=== PATIENT | female | born 1985 | race Caucasian/White ===

== ENCOUNTER 2016-11-11 11:55 | Emergency (ER) | payer OTHER, SELFPAY ==
[~2016-11-11] VITALS: Ht 165.1 cm; Wt 68.9 kg
[2016-11-11 12:10] VITALS: BP 129/81
[2016-11-11] MEDS ORDERED: PENICILLIN V POTASSIUM 500 MG TAB PO ONE (12:45)
[2016-11-11] MEDS ORDERED: PENI500T PO (12:47)
== END 2016-11-11 12:56 | disposition home or self-care (01) ==
LOC: M ED 12:40
DX: K08.9 Disorder of teeth and supporting structures, unspecified (principal)

== ENCOUNTER 2020-02-07 14:59 | Emergency (ER) | payer MEDICAID, SELFPAY ==
[~2020-02-07] VITALS: Ht 165.1 cm; Wt 73.8 kg
[~2020-02-07 14:59] MED LIST: PENI500T PO
[2020-02-07] MEDS ORDERED: ONDANSETRON 4MG/2ML VIAL IV ONE (15:15)
[2020-02-07] MEDS ORDERED: NS 1,000 ML IV ONE (15:15)
[2020-02-07] MEDS: KETOROLAC 30 MG/ML 1ML VIAL IV ONE ×2 (15:38→16:09)
[2020-02-07 15:41] LABS: BASO # 0.1 10^3/uL (0.0-0.2); BASO % 0.5 % (0.0-1.0); EOS # 0.3 10^3/uL (0.0-0.5); EOS % 3.5 % (0.0-3.0); HEMOGLOBIN 12.8 g/dl (12.0-15.5); LYMPH # 1.7 10^3/uL (1.5-5.0); LYMPH % 18.7 % (24.0-44.0); MEAN CORPUSCULAR HEMOGLOBIN 27.8 pg (27.0-33.0); MEAN CORPUSCULAR HGB CONC 33.7 g/dl (32.0-36.5); MEAN CORPUSCULAR VOLUME 82.6 fl (80.0-96.0); MONO # 0.7 10^3/uL (0.0-0.8); MONO % 7.1 % (0.0-5.0); NEUTROPHILS # 6.5 10^3/uL (1.5-8.5); PLATELET COUNT, AUTOMATED 460 10^3/uL (150-450); WHITE BLOOD COUNT 9.3 10^3/uL (4.0-10.0)
[2020-02-07 16:01] LABS: HCG, SERUM QUALITATIVE POSITIVE (NEGATIVE)
[2020-02-07 16:25] LABS: ALBUMIN 4.1 GM/DL (3.2-5.2); ALT/SGPT 27 U/L (12-78); BILIRUBIN,DIRECT < 0.1 MG/DL (0.0-0.2); BILIRUBIN,TOTAL 0.3 MG/DL (0.2-1.0); HCG, SERUM QUANTITATIVE 34355 MIU/ML; LIPASE 65 U/L (73-393); TOTAL PROTEIN 7.8 GM/DL (6.4-8.2)
[2020-02-07] MEDS ORDERED: ONDA4TAB6 PO (18:05)
[2020-02-07 18:10] VITALS: BP 146/77
--- NOTE | 2020-02-11 10:04 | REP ---
FIRST TRIMESTER ULTRASOUND HISTORY: . Abdominal pain. TECHNIQUE: Real-time sonographic evaluation of gravid uterus performed utilizing transabdominal and endovaginal technique. FINDINGS: There is a single living intrauterine gestation with estimated gestational age of 6 weeks 3 days based on a crown-rump length of 6 mm, estimated date of confinement (EDC) 09/29/2020. heart rate is 128 beats per minute. There is no subchorionic hemorrhage. Left ovary demonstrates a small cystic structure likely representing a corpus luteum, maximum diameter is approximately 11 mm. There is no evidence of ovarian torsion bilaterally with duplex Doppler evaluation. There are two fibroids identified in the uterus, in the fundus 1.6 x 1.2 x 1.6 cm and in the right uterus 2.5 x 1.4 x 1.9 cm. Preliminary report provided by [facility] at the time of the exam. [facility] CENTERMichelle
== END 2020-02-07 18:22 | disposition home or self-care (01) ==
LOC: M ED 14:59
DX: O26.899 Other specified pregnancy related conditions, unspecified trimester (principal); R10.9 Unspecified abdominal pain; R19.5 Other fecal abnormalities; Z3A.01 Less than 8 weeks gestation of pregnancy
CPT/HCPCS: 76801; 76817; 80047; 80076; 81001; 83690; 84702; 84703; 85025; 87086; 93976; 96361; 96374; 99284; J2405

== ENCOUNTER → 2020-05-16 | Outpatient (CLI) | payer OTHER ==
[~2020-05-16] MED LIST changes: +ONDA4TAB6 PO
--- NOTE | 2020-05-16 12:15 | REP ---
INDICATION: ENCOUNTER FOR SUPRVS OF NORMAL 2ND TRIMESTER COMPARISON: None. TECHNIQUE: Transabdominal obstetrical ultrasound with color Doppler evaluation. FINDINGS: Examination demonstrates a single live intrauterine in cephalic presentation. motion is identified by technologist. Placenta is noted left lateral and grade 0 without evidence for placenta previa or abruption. Amniotic fluid volume is normal. Cervix measures 3.5 cm in length and appears closed.. Gestational age by LMP 20 weeks 2 days with PEDRO 10/01/2020. Gestational age by current measurements 21 weeks 6 days with PEDRO 09/20/2020. FHR equals 141 beats per minute. BPD: 5.1 cm 21 weeks 2 days HC: 19.3 cm 21 weeks 4 days AC: 16.4 cm 21 weeks 3 days FL: 4.0 cm 22 weeks 6 days HL: 3.5 cm 22 weeks 1 day HC/AC: 1.18 Estimated weight 469 grams Anatomical assessment demonstrates normal structures including cranium, choroid plexus, cavum, cerebellum/posterior fossa, facial features, lungs, ventricular outflow tracts, diaphragm, stomach, cord insertion/three-vessel cord, bladder, spine, and extremities. Four-chamber heart view demonstrates echogenic focus within the left ventricle likely prominent chordae tendineae. Kidneys demonstrate left renal pelviectasis. IMPRESSION: Single live intrauterine in cephalic presentation demonstrating appropriate estimated weight and growth. Anatomical limitations as noted above may warrant re-evaluation and follow-up. <Electronically signed by Jose Francisco Starks > 05/16/20 [id number]
== END ==
LOC: M RAD 10:10
PROVIDERS: ATTEND Obstetrics & Gynecology
DX: Z34.82 Encounter for supervision of other normal pregnancy, second trimester (principal); Z3A.21 21 weeks gestation of pregnancy

== ENCOUNTER 2020-06-02 15:35 | Emergency (ER) | payer OTHER ==
[~2020-06-02] VITALS: Ht 165.1 cm; Wt 82.3 kg
--- OUTSIDE RECORDS SUMMARY | 2020-06-02 15:43 | CCD | Continuity of Care Document ---
Author [facility] [place] [facility] Address Unknown Phone Unavailable Care Team Providers [place] Support Specialist Name Role Phone Eugenia rBumfield MD Unavailable Unavailable Allergies, Adverse Reactions, Alerts Substance Reaction Status Criticality No Known Allergies Active No Information Medications Medication Instructions Dosage Effective Dates (start - stop) Sta tus Comments No Information Problems Condition Effective Dates (start - stop) Clinical Status C omments Other sex counseling Encounter for oth general cnsl and advice on contraception Enctr for init prescription of patch hormonal contracep dev Other sex counseling Encounter for oth general cnsl and advice on contraception Encntr for f/u exam aft trtmt for cond oth than malig neoplm Encntr screen for infections w sexl mode of transmiss High risk heterosexual behavior Encounter for test, result positive Encounter for elective termination of Encounter for test, result positive Human immunodeficiency virus [HIV] counseling Other sex counseling Encounter for initial prescription of contraceptive pills Problems related to unwanted state, incidental Encounter for other specified special examinations Procedures Procedure Date No Information Results Test Name Date and Time Measure Units Reference Range Abnormal Flag St atus Comments No Information Advance Directives Directive Yes / No Effective Date File Name No Information Encounters Encounter Description Practice Location Reason(s) For Visit Diagnose s Date Provider Providers Copied on Encounter [facility] [place], [address], [place], [id number], [place] tel:[phone] [place] No Information Isabel Bello. [address] [place], [place], [id number], [place]. tel:[phone] [facility] [place], [address], [place], [id number], tel:[phone] [facility] [place] Other sex counselin gEncounter for oth general cnsl and advice on contraceptionEnctr for init prescription of patch hormonal contracep dev Leticia Amaya. [address] [place], [place], [id number], [place]. tel:[phone] [facility], [address] [place] [address], [id number], [place] tel:[phone] [facility] [place] Other sex counselin gEncounter for oth general cnsl and advice on contraceptionEncntr for f/u exam aft trtmt for cond oth than malig neoplm Maxim Hurst. [address] [place] [address], [id number], [place]. tel:[phone] Referring Provider: Natali Pan, [address], [place], [id number]. tel:[phone] [facility], [address] [place] [address], [id number], [place] tel:[phone] [place] [place] Encntr screen for i nfections w sexl mode of transmissHigh risk heterosexual behaviorEncounter for test, result positiveEncounter for elective termination of Leticia Amaya. [address] [place] [address], [id number], [place]. tel:[phone] Referring Provider: Monique Kelly, [address] [place] [address], [id number]. tel:[phone] [facility], [address] [place] [address], [id number], [place] tel:[phone] [facility] [place] Encounter for pregn unique test, result positiveHuman immunodeficiency virus [HIV] counselingOther sex counselingEncounter for initial prescription of contraceptive pillsProblems related to unwanted pregnancy state, incidentalEncounter for other specified special examinations Maxim Hurst. [address] [place], [place], [id number], . tel:[phone] Referring Provider: Natali Pan, [address] [place], [place], [id number]. tel:[phone] Family History Family Member Diagnosis Age At Onset Maternal grandmother Diabetes mellitus Immunizations Vaccine Date Status Comments No Information Payers Payer name Insurance type Covered democrat ID Authorization(s ) Medicaid MC [id number] Social History Type Description Quantity Date Captured Comments Alcohol Use Details Unknown Caffeine Use Details Unknown Tobacco Use Status No Information Smoking Status Never smoker Sex Female Vital Signs Date / Time: Height Weight BMI Pulse Rate Blood Pressure Temperatu re Respiratory Rate Body Surface Area Head Circumference BMI percentile Pulse Ox In haled Ox No Information Chief Complaint And Reason For Visit No Information Reason For Referral Reason For Referral No Information Plan Of Treatment Date Type Action Status No Information History Of Present Illness Encounter Date Complaint History Of Present I llness No Information Functional Status Date Functional Assessment No Information Medications Administered Medication Instructions Dosage Effective Dates (start - stop) Sta tus Comments No Information Instructions Date Instruction Additional Informati on No Information Assessments Type Assessment Date No Information Goals Health Concern Goal Type Priority Status Date No Information Medical Equipment Description Device [place] Device Identifier Effective Nilesh es (start - stop) Status No Information Mental Status Date Cognitive Assessment No Information Health Concerns Observation Date No Information Concern Status Date No Information Physical Examination Exam Findings Details No Information
--- OUTSIDE RECORDS SUMMARY | 2020-06-02 15:43 | CCD ---
Author Author [facility] Organization [facility] Address Unknown Phone Unavailable Care Team Providers Care Billing And Quality Technician Name Role Phone Pan NIGHT PATROL INSPECTOR, Becca Natali Unavailable Pan NIGHT PATROL INSPECTOR, Becca Natali Unavailable Pan NIGHT PATROL INSPECTOR, Becca Natali Unavailable Pan NIGHT PATROL INSPECTOR, Becca Natali Unavailable Pan NIGHT PATROL INSPECTOR, Becca Natali Unavailable Pan NIGHT PATROL INSPECTOR, Becca Natali Unavailable Dusty Brumfield MD Unavailable Unavailable Dusty Brumfield MD Unavailable Unavailable Dusty Brumfield MD Unavailable Unavailable Octaviano, Dusty Bello MD Unavailable Unavailable Dusty Brumfield MD Unavailable Unavailable Octaviano, Dusty Bello MD Unavailable Unavailable Dusty Brumfield MD Unavailable Unavailable Dusty Brumfield MD Unavailable Unavailable Dusty Brumfield MD Unavailable Unavailable Dusty Brumfield MD Unavailable Unavailable Dusty Brumfield MD Unavailable Unavailable Dusty Brumfield MD Unavailable Unavailable Dusty Brumfield MD Unavailable Unavailable Dusty Brumfield MD Unavailable Unavailable Dusty Brumfield MD Unavailable Unavailable Dusty Brumfield MD Unavailable Unavailable Dusty Brumfield MD Unavailable Unavailable Dusty Brumfield MD Unavailable Unavailable Dusty Brumfield MD Unavailable Unavailable Dusty Brumfield MD Unavailable Unavailable Dusty Brumfield MD Unavailable Unavailable Dusty Brumfield MD Unavailable Unavailable Dusty Brumfield MD Unavailable Unavailable Dusty Brumfield MD Unavailable Unavailable Dusty Brumfield MD Unavailable Unavailable Octaviano, A Eugenia LUCIANO Unavailable Unavailable Octaviano, A Eugenia LUCIANO Unavailable Unavailable Octaviano, A Eugenia LUCIANO Unavailable Unavailable Octaviano, A Eugenia LUCIANO Unavailable Unavailable Octaviano, A Eugenia LUCIANO Unavailable Unavailable Octaviano, A Eugenia LUCIANO Unavailable Unavailable Octaviano, A Eugenia LUCIANO Unavailable Unavailable Octaviano, A Eugenia LUCIANO Unavailable Unavailable Octaviano, A Eugenia LUCIANO Unavailable Unavailable Octaviano, A Eugenia LUCIANO Unavailable Unavailable Octaviano, A Eugenia LUCIANO Unavailable Unavailable Octaviano, A Eugenia LUCIANO Unavailable Unavailable Octaviano, A Eugenia LUCIANO Unavailable Unavailable Octaviano, A Eugenia LUCIANO Unavailable Unavailable Octaviano, A Eugenia LUCIANO Unavailable Unavailable Octaviano, A Eugenia LUCIANO Unavailable Unavailable Octaviano, A Eugenia LUCIANO Unavailable Unavailable Octaviano, A Eugenia LUCIANO Unavailable Unavailable Octaviano, A Eugenia LUCIANO Unavailable Unavailable Octaviano, A Eugenia LUCIANO Unavailable Unavailable Octaviano, A Eugenia LUCIANO Unavailable Unavailable Octaviano, A Eugenia LUCIANO Unavailable Unavailable Octaviano, A Eugenia LUCIANO Unavailable Unavailable Octaviano, A Eugenia LUCIANO Unavailable Unavailable Octaviano, A Eugenia LUCIANO Unavailable Unavailable Octaviano, A Eugenia LUCIANO Unavailable Unavailable Octaviano, A Eugenia LUCIANO Unavailable Unavailable Octaviano, A Eugenia LUCIANO Unavailable Unavailable Octaviano, A Eugenia LUCIANO Unavailable Unavailable Octaviano, A Eugenia LUCIANO Unavailable Unavailable Octaviano, A Eugenia LUCIANO Unavailable Unavailable Octaviano, A Eugenia LUCIANO Unavailable Unavailable Octaviano, A Eugenia LUCIANO Unavailable Unavailable Octaviano, A Eugenia LUCIANO Unavailable Unavailable Octaviano, A Eugenia LUCIANO Unavailable Unavailable Octaviano, A Eugenia LUCIANO Unavailable Unavailable Octaviano, A Eugenia LUCIANO Unavailable Unavailable Octaviano, A Eugenia LUCIANO Unavailable Unavailable Octaviano, A Eugenia LUCIANO Unavailable Unavailable Octaviano, A Eugenia LUCIANO Unavailable Unavailable Octaviano, A Eugenia LUCIANO Unavailable Unavailable Octaviano, A Eugenia LUCIANO Unavailable Unavailable Octaviano, A Eugenia LUCIANO Unavailable Unavailable Octaviano, A Eugenia LUCIANO Unavailable Unavailable Octaviano, A Eugenia LUCIANO Unavailable Unavailable Octaviano, A Eugenia LUCIANO Unavailable Unavailable Octaviano, A Eugenia LUCIANO Unavailable Unavailable Octaviano, A Eugenia LUCIANO Unavailable Unavailable Octaviano, A Eugenia LUCIANO Unavailable Unavailable Octaviano, A Eugenia LUCIANO Unavailable Unavailable Bradley, J Monique PA Unavailable Unavailable Bradley, J Monique PA Unavailable Unavailable Bradley, J Monique PA Unavailable Unavailable Bradley, J Monique PA Unavailable Unavailable Bradley, J Monique PA Unavailable Unavailable Bradley, J Monique PA Unavailable Unavailable Bradley, J Monique PA Unavailable Unavailable Bradley, J Monique PA Unavailable Unavailable Bradley, J Monique PA Unavailable Unavailable Bradley, J Monique PA Unavailable Unavailable Bradley, J Monique PA Unavailable Unavailable Bradley, J Monique PA Unavailable Unavailable Bradley, J Monique PA Unavailable Unavailable Bradley, J Monique PA Unavailable Unavailable Bradley, J Monique PA Unavailable Unavailable Bradley, J Monqiue PA Unavailable Unavailable Bradley, J Monique PA Unavailable Unavailable Bradley, J Monique PA Unavailable Unavailable Bradley, J Monique PA Unavailable Unavailable Bradley, J Monique PA Unavailable Unavailable Bradley, J Monique PA Unavailable Unavailable Bradley, J Monique PA Unavailable Unavailable Re-disclosure Warning The records that you are about to access may contain information from federally-assisted alcohol or drug abuse programs. If such information is present, then the following federally mandated warning applies: This information has been disclosed to you from records protected by federal confidentiality rules (42 CFR part 2). The federal rules prohibit you from making any further disclosure of this information unless further disclosure is expressly permitted by the written consent of the person to whom it pertains or as otherwise permitted by 42 CFR part 2. A general authorization for the release of medical or other information is NOT sufficient for this purpose. The Federal rules restrict any use of the information to criminally investigate or prosecute any alcohol or drug abuse patient.The records that you are about to access may contain highly sensitive health information, the redisclosure of which is protected by Article 27-F of the [facility] Public Health law. If you continue you may have access to information: Regarding HIV / AIDS; Provided by facilities licensed or operated by the [facility] Office of Mental Health; or Provided by the [facility] Office for People With Developmental Disabilities. If such information is present, then the following [facility] mandated warning applies: This information has been disclosed to you from confidential records which are protected by state law. State law prohibits you from making any further disclosure of this information without the specific written consent of the person to whom it pertains, or as otherwise permitted by law. Any unauthorized further disclosure in violation of state law may result in a fine or nursing home sentence or both. A general authorization for the release of medical or other information is NOT sufficient authorization for further disc losure. Family History Family Member Name Family Member Gender Family Member Status Date o f Status Description Data Source(s) Unknown Female Diagnosis 09/30/2019 12:00:00 AM EDT [facility] ([facility]) Encounters Encounter Providers Location Date Indications Data Source(s ) Attender: Eugenia Valentine 07:48:00 AM EST - 05/27/2020 07:48:00 AM EST [facility] ([facility]) Attender: Eugenia Valentine 11:21:00 AM EDT - 10/30/2019 11:21:00 AM EDT [facility] ([facility]) Attender: Monique Valentine 10/11 02:30:00 PM EDT - 10/29/2019 02:30:00 PM EDT Enctr for init prescription of patch hor monal contracep devEncounter for oth general cnsl and advice on contraceptionOther sex counseling [facility] ([facility]) Enctr for init prescription of patch hor monal contracep dev Encounter for oth general cnsl and advic e on contraception Other sex counseling OutpatientOFFICE VISIT, EST Post AB Attender: Natali Valentine 10/08/2019 02:30:00 PM EDT - 10/08/2019 02:30:00 PM ED T Encntr for f/u exam aft trtmt for cond oth than malig neoplmEncounter for oth general cnsl and advice on contraceptionOther sex counseling [facility] ([facility]) Encntr for f/u exam aft trtmt for cond o th than malig neoplm Encounter for oth general cnsl and advic e on contraception Other sex counseling Attender: Monique Valentine 09/11 09:10:00 AM EDT - 10/01/2019 09:10:00 AM EDT Encounter for elective termination of pregnancyEncounter for test, result positiveHigh risk heterosexual behaviorEncntr screen for infections w sexl mode of transmiss [facility] ([facility]) Encounter for elective termination of pr egnancy Encounter for test, result pos itive High risk heterosexual behavior Encntr screen for infections w sexl mode of transmiss [facility] Without Test Attender: Natali Valentine 09/30/2019 02:15:00 PM EDT - 09/30/2019 02:15:00 PM EDT Encounter for other specified special examinations state, incidentalProblems related to unwanted pregnancyEncounter for initial prescription of contraceptive pillsOther sex counselingHuman immunodeficiency virus [HIV] counselingEncounter for test, result positive [facility] ([facility] Encounter for other specified special ex aminations state, incidental Problems related to unwanted Encounter for initial prescription of co ntraceptive pills Other sex counseling Human immunodeficiency virus [HIV] couns eling Encounter for test, result pos itive Attender: Monique MOROCHO [facility] 09/11 02:11:00 PM EDT - 09/30/2019 02:11:00 PM EDT [facility] Medications Medication Brand Name Start Date Product Form Dose Route Admi nistrative Instructions Pharmacy Instructions Status Indications Reaction Description Data Source(s) Misoprostol 0.2 MG Oral Tablet misoprostol 200 mcg tab let misoprostol 200 mcg tablet 10/01/2019 12:00:00 AM EDT completed 4 tabs buccally 24-48 hrs after mifepristone (#4) [facility] ([facility] Mifepristone 200 MG Oral Tablet [Mifeprex] Mifeprex 20 0 mg tablet Mifeprex 200 mg tablet 10/01/2019 12:00:00 AM EDT complete d Mifepristone 200 MG Oral Tablet [Mifeprex] [facility] Ondansetron 4 MG Oral Tablet ondansetron HCl 4 mg tabl et ondansetron HCl 4 mg tablet 10/01/2019 12:00:00 AM EDT active 1 tab po every 4 hours prn (#4) [facility] ([facility]) Acetaminophen 300 MG / Codeine Phosphate 30 MG Oral Tablet acetaminophen 300 mg- codeine 30 mg tablet acetaminophen 300 mg-codeine 30 mg tablet 10/01/2019 12:00:00 AM EDT completed 1-2 tabs po every 4 hours prn pain *not to exceed 12 tablets in 24hour period* [facility] Ibuprofen 800 MG Oral Tablet ibuprofen 800 mg tablet ibuprof en 800 mg tablet 10/01/2019 12:00:00 AM EDT active 1 tab po every 8 hours prn [facility] ([facility]) Ondansetron 4 MG Oral Tablet [Zofran] Zofran 4 mg tablet Zof ran 4 mg tablet 10/01/2019 12:00:00 AM EDT active Ondansetron 4 MG Oral Tablet [Zofran] [facility] ([facility]) Apri 0.15 mg-0.03 mg tablet {21 (Desogestrel 0.15 MG / Ethinyl Estradiol 0.03 MG Oral Tablet) / 7 (Inert Ingredients 1 MG Oral Tablet) } Pack 09/30/2019 12:00:00 AM EDT active Apri 28 Day Pack [facility] ([facility]) Insurance Providers Payer name Policy type / Coverage type Policy ID Covered democrat ID Covered democrat's relationship to ellis Policy Ellis Plan Information [facility] [id number] SP [id number] [facility] [id number] SP [id number] [facility] [id number] SP [id number] [place] [id number] SP [id number] SELF PAY ONLY [id number] SP [id number] [facility] [id number] SP [id number] [facility] [id number] SP [id number] SELF PAY UNAVAILABLE UNAVAILA BLE [id number] Surgeries/Procedures Procedure Description Date Indications Data Source(s) CVR Parachute Crown Sewer.Svc. Other 10/08/2019 12:00:00 AM EDT - 2019 12:00:00 AM EDT [facility] ([facility]) CVR Med.Svc. Height/Weight 10/08/2019 12 :00:00 AM EDT - 10/08/2019 12:00:00 AM EDT [facility] ([facility]) CVR Blood Pressure 10/08/2019 12:00:00 AM EDT - 2019 12:00:00 AM EDT [facility] ([facility]) OFFICE VISIT, EST Post AB 10/08/2019 12: 00:00 AM EDT - 10/08/2019 12:00:00 AM EDT [facility] ([facility]) CVR Parachute Crown Sewer.Svc. Other 10/01/2019 12:00:00 AM EDT - 2019 12:00:00 AM EDT [facility] ([facility]) CVR Parachute Crown Sewer.Svc. Options 0 12:00:00 AM EDT - 10/01/2019 12:00:00 AM EDT [facility] ([facility]) CVR Parachute Crown Sewer.Svc. Contraceptive 10/01/2019 12 :00:00 AM EDT - 10/01/2019 12:00:00 AM EDT [facility] ([facility]) CVR Med.Svc. Height/Weight 10/01/2019 12 :00:00 AM EDT - 10/01/2019 12:00:00 AM EDT [facility] ([facility]) CVR Blood Pressure 10/01/2019 12:00:00 AM EDT - 2019 12:00:00 AM EDT [facility] ([facility]) Est. Patient MAB Exp Prob Focused 2019 12:00:00 AM EDT - 10/01/2019 12:00:00 AM EDT [facility] ([facility]) Misoprostol, oral, 200 mcg 4 Tabs MAB 12:00:00 AM EDT - 10/01/2019 12:00:00 AM EDT [facility] ([facility]) Mifeprex, oral, 200 mg 10/01/2019 12:00: 00 AM EDT - 10/01/2019 12:00:00 AM EDT [facility] ([facility]) CAPILLARY BLOOD DRAW 10/01/2019 12:00:00 AM EDT - 10/01/2019 12:00:00 AM EDT [facility] ([facility]) HEMOGLOBIN 10/01/2019 12:00:00 AM EDT - 10/01/2019 1 2:00:00 AM EDT [facility] ([facility]) N.GONORRHOEAE, URINE 10/01/2019 12:00:00 AM EDT - 10/01/2019 12:00:00 AM EDT [facility] ([facility]) CHYLMD TRACH, URINE 10/01/2019 12:00:00 AM EDT - 09/30 12:00:00 AM EDT [facility] ([facility]) CVR Parachute Crown Sewer.Svc. STI / H 09/30/2019 12:00:00 AM EDT - 09/30/2019 12:00:00 AM EDT [facility] ([facility]) CVR Parachute Crown Sewer.Svc. Other 09/30/2019 12:00:00 AM EDT - 2019 12:00:00 AM EDT [facility] ([facility]) CVR Parachute Crown Sewer.Svc. Options 0 12:00:00 AM EDT - 09/30/2019 12:00:00 AM EDT [facility] ([facility]) CVR Parachute Crown Sewer.Svc. Contraceptive 09/30/2019 12 :00:00 AM EDT - 09/30/2019 12:00:00 AM EDT [facility] ([facility]) CVR Med.Svc. Height/Weight 09/30/2019 12 :00:00 AM EDT - 09/30/2019 12:00:00 AM EDT [facility] ([facility]) CVR Blood Pressure 09/30/2019 12:00:00 AM EDT - 2019 12:00:00 AM EDT [facility] ([facility]) HCS Without Test 09/30/2019 12:00:00 AM EDT - 09/30/19 20 12:00:00 AM EDT [facility] ([facility]) OFFICE VISIT, NEW MAB 09/30/2019 12:00:00 AM EDT - 09/30/2019 12:00:00 AM EDT [facility] ([facility]) Results ID Date Data Source [id number] 10/01/2019 09:26:39 AM EDT [facility] ([facility]) Name Value Range Interpretation Code Description Data Jocelynn rce(s) Supporting Document(s) 12.30 gm/dL Hemoglobin [facility] ([facility]) Procedure Social History Code Duration Value Status Description Data Source(s ) Smoking 05/27/2020 12:00:00 AM EST Never smoker completed Never s moker [facility] ([facility]) 10/29/2019 12:00:00 AM EDT Current non-smoker completed C urrent non-smoker [facility] ([facility]) Vital Signs ID Date Data Source UNK Name Value Range Interpretation Code Description Data Source(s) Body height 165.10 cm 165.10 cm [facility] Body mass index (BMI) [Ratio] 28.16 kg/m2 Overweight 28.16 kg/m2 [facility] ([facility]) Diastolic blood pressure 75 mm[Hg] 75 mm[Hg] [facility] ([facility]) Systolic blood pressure 118 mm[Hg] 118 mm[Hg] N [facility] ([facility]) Body weight 76.748 kg 76.748 kg [facility] Body height 165.10 cm 165.10 cm [facility] Body mass index (BMI) [Ratio] 26.63 kg/m2 Overweight 26.63 kg/m2 [facility] ([facility]) Body weight 72.575 kg 72.575 kg [facility] Body height 165.10 cm 165.10 cm [facility] Patient Treatment Plan of Care Planned Activity Planned Date Details Description Data Source (s) Acetaminophen 300 MG / Codeine Phosphate 30 MG Oral Ta blet 10/01/2019 12:00:00 AM EDT [facility] Misoprostol 0.2 MG Oral Tablet 10/01/2019 12:00:00 AM EDT [facility] ([facility]) Mifepristone 200 MG Oral Tablet [Mifeprex] 10/01/2019 12:00:00 AM E DT [facility] ([facility]) Ondansetron 4 MG Oral Tablet [Zofran] 10/01/2019 12:00:00 AM EDT [facility] ([facility]) Ondansetron 4 MG Oral Tablet 10/01/2019 12:00:00 AM EDT [facility] ([facility]) Ibuprofen 800 MG Oral Tablet 10/01/2019 12:00:00 AM EDT [facility] ([facility]) Apri 0.15 mg-0.03 mg tablet 09/30/2019 12:00:00 AM EDT [facility] ([facility])
[2020-06-02] MEDS ORDERED: PRENTAB9 PO (15:45)
--- OUTSIDE RECORDS SUMMARY | 2020-06-02 16:45 | CCD ---
Author Author [facility] Organization [facility] Address Unknown Phone Unavailable Care Team Providers Care Realtime Reporter Name Role Phone Pan GEOPHYSICAL PROSPECTING SURVEYOR, Becca Natali Unavailable [phone] Pan GEOPHYSICAL PROSPECTING SURVEYOR, Becca Natali Unavailable Pan GEOPHYSICAL PROSPECTING SURVEYOR, Becca Natali Unavailable Pan GEOPHYSICAL PROSPECTING SURVEYOR, Becca Natali Unavailable Pan GEOPHYSICAL PROSPECTING SURVEYOR, Becca Natali Unavailable Pan GEOPHYSICAL PROSPECTING SURVEYOR, Becca Natali Unavailable Dusty Brufmield MD Unavailable Unavailable Dusty Brumfield MD Unavailable [...] Unavailable Unavailable Dusty Brumfield MD Unavailable Unavailable Otcaviano, A Eugenia LUCIANO Unavailable Unavailable Octaviano, A [...] Eugenia LUCIANO Unavailable Unavailable Octaviano, A Eugenia LUCAINO Unavailable Unavailable Octaviano, A Eugenia LUCIANO Unavailable Unavailable Octaviano, A Eugenai LUCIANO Unavailable Unavailable Octaviano, A Eugenia LUCIANO [...] Unavailable Octaviano, A Eugenia LUCIANO Unavailable Unavailable [place], J Monique PA Unavailable Unavailable Old Station, J Monique PA Unavailable Unavailable Old Station, J Monique PA Unavailable Unavailable Old Station, J Monique PA Unavailable Unavailable Old Station, J Monique PA Unavailable Unavailable Old Station, J Monique PA Unavailable Unavailable Old Station, J Monique PA Unavailable Unavailable Old Station, J Monique PA Unavailable Unavailable Old Station, J Monique PA Unavailable Unavailable [place] Station, J Monique PA Unavailable Unavailable Old Station, J Monique PA Unavailable Unavailable Old Station, J Monique PA Unavailable Unavailable Old Station, J Monique PA Unavailable Unavailable Old Station, J Monique PA Unavailable Unavailable Old Station, J Monique PA Unavailable Unavailable Old Station, J Monique PA Unavailable Unavailable Old Station, J Monique PA Unavailable Unavailable Old Station, J Monique PA Unavailable Unavailable Old Station, J Monique PA Unavailable Unavailable Old Station, J Monique PA Unavailable Unavailable Old Station, J Monique PA Unavailable Unavailable [place], J Monique PA Unavailable Unavailable Re-disclosure Warning [...] is protected by Article 27-F of the [facility] Public Health law. If you continue you may have access to information: Regarding HIV / AIDS; Provided by facilities licensed or operated by the [facility] Office of Mental Health; or Provided by the [facility] Office for People With Developmental Disabilities. If such information is present, then the following [facility] mandated warning applies: This information has been [...] law may result in a fine or prison sentence or both. A general authorization for the release of medical or other information is NOT sufficient authorization for further disc losure. Family History Family Member Name Family Member Gender Family Member Status Date o f Status Description Data Source(s) Unknown Female Diagnosis 09/30/2019 12:00:00 AM EDT [facility] ([facility]) Encounters Encounter Providers Location Date Indications Data Source(s ) Attender: Eugenia Valentine 07:48:00 AM EST - 05/27/2020 07:48:00 AM EST [facility] ([facility]) Attender: Eugenia Valentine 11:21:00 AM EDT - 10/30/2019 11:21:00 AM EDT [facility] ([facility]) Attender: Monique Valentine 10/11 02:30:00 PM EDT - 10/29/2019 02:30:00 PM EDT Enctr for init prescription of patch hor monal contracep devEncounter for oth general cnsl and advice on contraceptionOther sex counseling [facility] ([facility]) Enctr for init prescription of patch [...] sex counseling [facility] ([facility]) Encntr for f/u exam aft trtmt [...] of transmiss [facility] ([facility]) Encounter for elective termination of pr [...] counselingEncounter for test, result positive [facility] Encounter for other specified special ex aminations state, incidental Problems related to unwanted Encounter for initial prescription of co ntraceptive pills Other sex counseling Human immunodeficiency virus [HIV] couns eling Encounter for test, result pos itive Attender: Monique MOROCHO [facility] 09/11 02:11:00 PM EDT - 09/30/2019 02:11:00 PM EDT [facility] Medications Medication Brand Name Start Date Product Form Dose Route Admi nistrative Instructions Pharmacy Instructions Status Indications Reaction Description Data Source(s) Misoprostol 0.2 MG Oral Tablet misoprostol 200 mcg tab let misoprostol 200 mcg tablet 10/01/2019 12:00:00 AM EDT completed 4 tabs buccally 24-48 hrs after mifepristone (#4) [facility] Mifepristone 200 MG Oral Tablet [Mifeprex] Mifeprex 20 0 mg tablet Mifeprex 200 mg tablet 10/01/2019 12:00:00 AM EDT complete d Mifepristone 200 MG Oral Tablet [Mifeprex] [facility] Ondansetron 4 MG Oral Tablet ondansetron HCl 4 mg tabl et ondansetron HCl 4 mg tablet 10/01/2019 12:00:00 AM EDT active 1 tab po every 4 hours prn (#4) [facility] ([facility]) Acetaminophen 300 MG / Codeine Phosphate 30 MG Oral Tablet acetaminophen 300 mg- codeine 30 mg tablet acetaminophen 300 mg-codeine 30 mg tablet 10/01/2019 12:00:00 AM EDT completed 1-2 tabs po every 4 hours prn pain *not to exceed 12 tablets in 24hour period* [facility] Ibuprofen 800 MG Oral Tablet ibuprofen 800 mg tablet ibuprof en 800 mg tablet 10/01/2019 12:00:00 AM EDT active 1 tab po every 8 hours prn [facility] ([facility]) Ondansetron 4 MG Oral Tablet [Zofran] Zofran 4 mg tablet Zof ran 4 mg tablet 10/01/2019 12:00:00 AM EDT active Ondansetron 4 MG Oral Tablet [Zofran] [facility] ([facility]) Apri 0.15 mg-0.03 mg tablet {21 (Desogestrel 0.15 MG / Ethinyl Estradiol 0.03 MG Oral Tablet) / 7 (Inert Ingredients 1 MG Oral Tablet) } Pack 09/30/2019 12:00:00 AM EDT active Apri 28 Day Pack [facility] ([facility]) Insurance Providers Payer name Policy type / Coverage type Policy ID Covered republican ID Covered republican's relationship to ellis Policy Ellis Plan Information [facility] [id number] SP [id number] [facility] [id number] SP [id number] [facility] [id number] SP [id number] [place] [id number] SP [id number] SELF PAY ONLY [id number] SP [id number] [facility] [id number] SP [id number] [facility] [id number] SP [id number] SELF PAY UNAVAILABLE UNAVAILA BLE [id number] Surgeries/Procedures Procedure Description Date Indications Data Source(s) CVR Mis Director.Svc. Other 10/08/2019 12:00:00 AM EDT - 2019 12:00:00 AM [facility]T [facility] CVR Med.Svc. Height/Weight 10/08/2019 12 :00:00 AM EDT - 10/08/2019 12:00:00 AM EDT [facility] CVR Blood Pressure 10/08/2019 12:00:00 AM EDT - 2019 12:00:00 AM EDT [facility]) OFFICE VISIT, EST Post AB 10/08/2019 12: 00:00 AM EDT - 10/08/2019 12:00:00 AM EDT [facility] ([facility]) CVR Mis Director.Svc. Other 10/01/2019 12:00:00 AM EDT - 2019 12:00:00 AM EDT [facility] ([facility]) CVR Mis Director.Svc. Options 0 12:00:00 AM EDT - 10/01/2019 12:00:00 AM EDT [facility] ([facility]) CVR Mis Director.Svc. Contraceptive 10/01/2019 12 :00:00 AM EDT - 10/01/2019 12:00:00 AM EDT [facility] ([facility]) CVR Med.Svc. Height/Weight 10/01/2019 12 :00:00 AM EDT - 10/01/2019 12:00:00 AM EDT [facility] ([facility]) CVR Blood Pressure 10/01/2019 12:00:00 AM EDT - 2019 12:00:00 AM EDT [facility] ([facility]) Est. Patient MAB Exp Prob Focused 2019 12:00:00 AM EDT - 10/01/2019 12:00:00 AM EDT [facility] ([facility]) Misoprostol, oral, 200 mcg 4 Tabs MAB 12:00:00 AM EDT - 10/01/2019 12:00:00 AM EDT [facility] ([facility]) Mifeprex, oral, 200 mg 10/01/2019 12:00: 00 AM EDT - 10/01/2019 12:00:00 AM EDT [facility] ([facility]) CAPILLARY BLOOD DRAW 10/01/2019 12:00:00 AM EDT - 10/01/2019 12:00:00 AM EDT [facility] ([facility]) HEMOGLOBIN 10/01/2019 12:00:00 AM EDT - 10/01/2019 1 2:00:00 AM EDT [facility] ([facility]) N.GONORRHOEAE, URINE 10/01/2019 12:00:00 AM EDT - 10/01/2019 12:00:00 AM EDT [facility] ([facility]) CHYLMD TRACH, URINE 10/01/2019 12:00:00 AM EDT - 09/30 12:00:00 AM EDT [facility] ([facility]) CVR Mis Director.Svc. STI / H 09/30/2019 12:00:00 AM EDT - 09/30/2019 12:00:00 AM EDT [facility] ([facility]) CVR Mis Director.Svc. Other 09/30/2019 12:00:00 AM EDT - 2019 12:00:00 AM EDT [facility] ([facility]) CVR Mis Director.Svc. Options 0 12:00:00 AM EDT - 09/30/2019 12:00:00 AM EDT [facility] ([facility]) CVR Mis Director.Svc. Contraceptive 09/30/2019 12 :00:00 AM EDT - 09/30/2019 12:00:00 AM EDT [facility] ([facility]) CVR Med.Svc. Height/Weight 09/30/2019 12 :00:00 AM EDT - 09/30/2019 12:00:00 AM EDT [facility] ([facility]) CVR Blood Pressure 09/30/2019 12:00:00 AM EDT - 2019 12:00:00 AM EDT [facility] ([facility]) HCS Without Test 09/30/2019 12:00:00 AM EDT - 09/30/19 20 12:00:00 AM EDT [facility] ([facility]) OFFICE VISIT, NEW MAB 09/30/2019 12:00:00 AM EDT - 09/30/2019 12:00:00 AM EDT [facility] ([facility]) Results ID Date Data Source [id number] 10/01/2019 09:26:39 AM EDT [facility] ([facility]) Name Value Range Interpretation Code Description Data Jocelynn rce(s) Supporting Document(s) 12.30 gm/dL Hemoglobin [facility] ([facility]) Procedure Social History Code Duration Value Status Description Data Source(s ) Smoking 05/27/2020 12:00:00 AM EST Never smoker completed Never s moker [facility] ([facility]) 10/29/2019 12:00:00 AM EDT Current non-smoker completed C urrent non-smoker [facility] ([facility]) Vital Signs ID Date Data Source UNK Name Value Range Interpretation Code Description Data Source(s) Body height 165.10 cm 165.10 cm [facility]) Body mass index (BMI) [Ratio] 28.16 kg/m2 Overweight 28.16 kg/m2 [facility] ([facility]) Diastolic blood pressure 75 mm[Hg] 75 mm[Hg] [facility] ([facility]) Systolic blood pressure 118 mm[Hg] 118 mm[Hg] N [facility] ([facility]) Body weight 76.748 kg 76.748 kg [facility]) Body height 165.10 cm 165.10 cm [facility]) Body mass index (BMI) [Ratio] 26.63 kg/m2 Overweight 26.63 kg/m2 [facility] ([facility]) Body weight 72.575 kg 72.575 kg [facility]) Body height 165.10 cm 165.10 cm [facility]) Patient Treatment Plan of Care Planned Activity Planned Date Details Description Data Source (s) Acetaminophen 300 MG / Codeine Phosphate 30 MG Oral Ta blet 10/01/2019 12:00:00 AM EDT [facility] Misoprostol 0.2 MG Oral Tablet 10/01/2019 12:00:00 AM EDT [facility] ([facility]) Mifepristone 200 MG Oral Tablet [Mifeprex] 10/01/2019 12:00:00 AM E DT [facility] ([facility]) Ondansetron 4 MG Oral Tablet [Zofran] 10/01/2019 12:00:00 AM EDT [facility] ([facility]) Ondansetron 4 MG Oral Tablet 10/01/2019 12:00:00 AM ED[facility] Ibuprofen 800 MG Oral Tablet 10/01/2019 12:00:00 AM EDT [facility] Apri 0.15 mg-0.03 mg tablet 09/30/2019 12:00:00 AM EDT [facility])
[2020-06-02] MEDS ORDERED: AUGM875T28 PO (18:15)
[2020-06-02 18:22] VITALS: BP 118/68
[2020-06-02] MEDS ORDERED: AUGMENTIN 875 MG TAB PO ONE (18:30)
== END 2020-06-02 18:28 | disposition home or self-care (01) ==
LOC: M ED 15:35
DX: O99.619 Diseases of the digestive system complicating pregnancy, unspecified trimester (principal); K04.7 Periapical abscess without sinus; Z3A.00 Weeks of gestation of pregnancy not specified

== ENCOUNTER → 2020-06-13 | Outpatient (CLI) | payer OTHER ==
[~2020-06-13] MED LIST changes: +AUGM875T28 PO; +PRENTAB9 PO
--- NOTE | 2020-06-13 10:29 | REP ---
INDICATION: ANATOMY F/U COMPARISON: 05/16/2020 TECHNIQUE: Transabdominal obstetrical ultrasound with color Doppler evaluation. FINDINGS: Examination demonstrates a single live intrauterine in footling breech presentation. motion is identified by technologist. Placenta is noted left/anterior and grade 1 without evidence for placenta previa or abruption. Amniotic fluid volume is normal. Cervix measures 5.6 cm in length and appears closed.. Gestational age by LMP 24 weeks 2 days with PEDRO 10/01/2020. Gestational age by current measurements 25 weeks 4 days with PEDRO 09/22/2020. FHR equals 136 beats per minute. Estimated weight 844 grams (greater than 97thpercentile based on age by LMP and 1st ultrasound). Anatomical assessment demonstrates normal structures including cranium, choroid plexus, cavum, cerebellum/posterior fossa, lungs, ventricular outflow tracts, diaphragm, stomach, cord insertion/three-vessel cord, kidneys/bladder, and spine. Limited evaluation of the four-chamber heart again demonstrates echogenic focus in the left cardiac ventricle likely chordae tendineae. Bilateral renal pelviectasis a noted and within normal limits for age. IMPRESSION: Single live intrauterine in footling breech. Anatomical limitations as noted above. Remainder of the visualized anatomical assessment is complete and normal. <Electronically signed by Jose Francisco Starks > 06/13/20 1023
== END ==
LOC: M RAD 09:31
PROVIDERS: ATTEND Obstetrics & Gynecology
DX: Z36.2 Encounter for other antenatal screening follow-up (principal); Z3A.24 24 weeks gestation of pregnancy

== ENCOUNTER → 2020-07-12 | Outpatient (CLI) | payer OTHER ==
[2020-07-12 13:20] LABS: HEMATOCRIT 33.1 % (36.0-47.0); HEMOGLOBIN 10.7 g/dl (12.0-15.5); MEAN CORPUSCULAR HEMOGLOBIN 28.7 pg (27.0-33.0); MEAN CORPUSCULAR HGB CONC 32.3 g/dl (32.0-36.5); MEAN CORPUSCULAR VOLUME 88.7 fl (80.0-96.0); PLATELET COUNT, AUTOMATED 293 10^3/uL (150-450); RED BLOOD COUNT 3.73 10^6/uL (4.00-5.40)
[2020-07-13 13:31] LABS: WHITE BLOOD COUNT 10.7 10^3/uL (4.0-10.0)
== END ==
LOC: M LAB 11:35
PROVIDERS: ATTEND Obstetrics & Gynecology
DX: Z34.82 Encounter for supervision of other normal pregnancy, second trimester (principal); Z3A.00 Weeks of gestation of pregnancy not specified

== ENCOUNTER 2020-08-28 09:13 | Outpatient (CLI) | payer OTHER ==
[~2020-08-28] VITALS: Ht 165.1 cm; Wt 88.3 kg
[2020-08-28 09:35] VITALS: BP 100/70
[2020-08-28 09:46] VITALS: BP 104/71
[2020-08-28 11:30] VITALS: BP 105/73
--- NOTE | 2020-09-18 16:45 | IPNPDOC ---
Text Note Date of Service The patient was seen on 08/28/20. NOTE Labor and Delivery Triage Note: S: 35yo at 36w5d EDC09/22/20, presents with c/o contractions and pelvic pressure. Denies vaginal bleeding or LOF. Reports active movement. O: vss, AF no ctx Cat 1 tracing, no ctx Gen: well appearing, NAD Abd: gravid, soft, nttp cx: long/ closed A/P: 35yo not in PTL reassuring status -home with PTL precautions and FKCs. -f/u at next OB appt MD GIO Saravia KENYA MD. September 18, 2020 16:45
== END 2020-08-28 12:00 | disposition home or self-care (01) ==
LOC: M LDO 09:13
PROVIDERS: ATTEND Obstetrics & Gynecology
DX: O47.03 False labor before 37 completed weeks of gestation, third trimester (principal); Z3A.36 36 weeks gestation of pregnancy

== ENCOUNTER → 2020-09-09 | Outpatient (REF) | payer OTHER, MEDICAID | LOC: M LAB REF 11:36 | PROVIDERS: ATTEND Advanced Practice Midwife | DX: Z34.83 Encounter for supervision of other normal pregnancy, third trimester (principal) ==

== ENCOUNTER 2020-09-30 12:54 | Inpatient (IN) | payer OTHER, MEDICAID ==
[~2020-09-30] VITALS: Ht 165.1 cm; Wt 90.1 kg
[2020-09-30] VITALS (32 sets, daily range): BP systolic 96–155; BP diastolic 53–89
[2020-09-30] MEDS ORDERED: ACET325C5 PO (13:22)
[2020-09-30] MEDS ORDERED: LACTATED RINGER'S 1000 ML IV STA (16:06)
[2020-09-30] MEDS ORDERED: OXYTOCIN DRIP 30 UNITS in IV 1 EA IV PRN (16:10)
[2020-09-30] MEDS ORDERED: OXYTOCIN DRIP 30 UNITS in IV 1 EA IV SCH (16:10)
[2020-09-30] MEDS ORDERED: LIDOCAINE 1% MDV 20ML VIAL INFIL PRN (16:10)
[2020-09-30] MEDS ORDERED: METHYLERGONOVINE MALEATE 0.2 MG/ML VIAL (J2210) IM PRN (16:10)
--- NOTE | 2020-09-30 16:31 | HPEPDOC ---
Obstetrical History & Physical General Date of Admission September 30, 2020 at 12:54 History of Present Illness Chief Complaint: Induction of labor Information Provided By: Patient Age: 35 : 3 Term: 2 Pre-term: 0 Abortions: 0 Livin Care Care: Good Care Dating Final EDC: October 01, 2020 Final EDC by: LMP EGA at Admission: 39 (+6) Antepartum Course Pre- weight (lbs.): 167 Admission Weight (lbs.): 193 Past Medical History Past Obstetrical History #1: Past Obstetrical History: Primgravida (2005) Type of Delivery: Spontaneous Vaginal Del. Sex of Infant: Male (7#6) Complications: No Past Obstetrical History #2: Past Obstetrical History: Multigravida (2007) Type of Delivery: Spontaneous Vaginal Del. 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 ENGINEER History: No pertinent history Past Medical History Surgical History: Denies/None Family History Significant Family History: Cancer Social History Family situation: Spouse/partner home Psychosocial History: No pertinent psych hx * Smoker: non-smoker Alcohol: Denies Drugs: denies Abuse Violence Screening Have you been hit/kicked/slapp: No Have you been sexually assault: No Allergies Coded Allergies: No Known Allergies (Verified , 08/13/05) Medications Miscellaneous Medications Acetaminophen (Tylenol) 325 Mg Capsule, 325 MG PO Physical Examination Physical Examination GENERAL: Alert and oriented times three. BREAST: . ABDOMEN: Gravid and non-tender to touch. FETUS: Is vertex (VTX) by sterile vaginal examination (SVE), fetus is vertex (VTX) by Erwin. EFW 8# HEART RATE: Regular rate and rhythm. LUNGS: Clear to auscultation (CTA). EXTREMITIES: No edema. No clonus. Deep tendon reflexes (DTRs) + 2. Vital Signs/I&O Vital Signs Date Time Temp Pulse Resp B/P (MAP) Pulse Ox O2 Delivery O2 Flow Rate FiO2 09/30/20 15:54 71 18 108/69 (82) 09/30/20 13:13 97.9 Laboratory Data 24H LABS Laboratory Tests 2 09/30/20 13:09: Serology Scanned Report Hepatitis B Testing Pertinent Laboratoy Data Blood Type: A+ RBC Antibody Screen: Negative HIV: Negative Hepatitis B: Negative Hepatitis C: Negative Rapid Plasma Reagin: Nonreactive Rubella: Immune Chlamydia/Gonorrhea: Negative Group B Streptococcus: Negative Glucose Tolerance Test: 72 Anatomy Ultrasound Ultrasound Date: May 16, 2020 Normal Anatomy: Yes (echogenic foci left ventricle) Placenta Previa: No Estimated Weight (grams): 469 Other Ultrasounds 02/07/2020 dating 6w3d, two fibroids noted 06/13/2020 F/u antomy. placenta left anterior, no previa. EGA 25w4d, EFW 844gm, 97% Steroid Therapy Steroid Therapy: No Vaginal Examination Dilation: 3 cm Effacement: 50% Station: -2 Cervical Consistency: Medium Cervical Position: Posterior Presentation: Cephalic presentation Assessment Heart Rate (FHR): 125 Variability: Moderate Accelerations: Positive Decelerations: None Tocometer Contractions: No Assessment/Plan Assessment Trevin is a 35-year-old (G)3 para (P)2-0-0-2 at 39+6 weeks by 6-week ultrasound. Presents to Labor and Delivery (L&D) for elective induction of labor. Entered care at [facility] in first trimester, care has been appropriate. Denies LOF, bleeding or regular UC. Plan Admit and orient. 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 Group B Streptococcus (GBS) negative. Labs and intravenous (IV) per unit protocol. Counseled on Pitocin and induction of labor (IOL). Lactated Ringers (LR): Bolus 500 mL, then at 125 mL/hr. Plans epidural Anticipate normal spontaneous delivery (). C-S as appropriate. Nahomy Milian CNM September 30, 2020 16:13
[2020-09-30] MEDS: LR 1,000 ML IV SCH ×3 (16:35→23:46)
[2020-09-30 17:08] LABS: HEMATOCRIT 32.7 % (36.0-47.0); HEMOGLOBIN 10.5 g/dl (12.0-15.5); MEAN CORPUSCULAR HEMOGLOBIN 27.5 pg (27.0-33.0); MEAN CORPUSCULAR HGB CONC 32.1 g/dl (32.0-36.5); MEAN CORPUSCULAR VOLUME 85.6 fl (80.0-96.0); PLATELET COUNT, AUTOMATED 244 10^3/uL (150-450); RED BLOOD COUNT 3.82 10^6/uL (4.00-5.40); WHITE BLOOD COUNT 10.4 10^3/uL (4.0-10.0)
[2020-09-30] MEDS ORDERED: FENTANYL 2MCG/ML ROPIVACAINE 0.2% IN 0.9% NACL 100ML IVBAG As Ordered ONE (19:19)
[2020-09-30] MEDS ORDERED: diphenhydrAMINE 50MG/ML VIAL (J1200) IV PRN (20:40)
[2020-09-30] MEDS ORDERED: NALOXONE INJ 0.4MG/1ML VIAL (J2310 PER 1MG) IV PRN (20:40)
[2020-09-30] MEDS ORDERED: ONDANSETRON 4MG/2ML VIAL IV PRN (20:40)
[2020-09-30] MEDS ORDERED: LACTATED RINGER'S 1000 ML IV PRN (20:40)
[2020-09-30] MEDS ORDERED: EPIDURAL/PCA KEYS XX PRN (20:40)
[2020-09-30] MEDS ORDERED: REFRIGERATOR IV KEYS XX PRN (20:40)
[2020-09-30] MEDS ORDERED: EPIDURAL COMMENT XX SCH (20:40)
[2020-09-30] MEDS ORDERED: FENTANYL/ROPIVACAINE/NACL BAG 100 ML EPIDURAL SCH (20:40)
[2020-09-30] MEDS: ePHEDrine SULFATE 25 MG/5 ML(5MG/ML) SYRINGE IV PRN ×2 (20:42→20:47)
--- NOTE | 2020-09-30 23:40 | IPNPDOC ---
Text Note Date of Service The patient was seen on 09/30/20. NOTE Progress Comfortable with epidural Pitocin @ 16mu FH 135, Cat I UC 2-4 minutes x 60 seconds SVE /-1, AROM small amount clear fluid Anticipate NSVB VS,Fishbone, I+O VS, Fishbone, I+O Laboratory Tests 09/30/20 14:44 Vital Signs Date Time Temp Pulse Resp B/P (MAP) Pulse Ox O2 Delivery O2 Flow Rate FiO2 09/30/20 23:17 62 16 104/55 (71) 09/30/20 22:46 97.2 09/30/20 22:01 98 Room Air Nahomy Milian CNM September 30, 2020 23:40
[2020-10-01] VITALS (11 sets, daily range): BP systolic 105–136; BP diastolic 56–74
[2020-10-01] MEDS ORDERED: RHOGAM 300 MCG (1500 IU) INJ (J2790) IM SCH (02:10)
[2020-10-01] MEDS ORDERED: MOM 30ML SUSPENSION UDC PO PRN (02:10)
[2020-10-01] MEDS ORDERED: ACETAMINOPHEN TAB 650MG DOSE (2X325MG) PO PRN (02:10)
[2020-10-01] MEDS ORDERED: DIBUCAINE 1% OINTMENT 30GM TOP PRN (02:10)
[2020-10-01] MEDS ORDERED: IBUPROFEN 600MG TAB PO PRN (02:10)
[2020-10-01] MEDS ORDERED: ANUSOL HC CREAM 30GM TOP PRN (02:10)
[2020-10-01] MEDS ORDERED: IBUPROFEN 800 MG TAB PO PRN (02:10)
[2020-10-01] MEDS ORDERED: MEASLES,MUMPS,RUBELLA VACCINE INJ (MMR-II) (90707) SC SCH (02:10)
[2020-10-01] MEDS ORDERED: OXYTOCIN DRIP 30 UNITS in IV 1 EA IV SCH (02:10)
[2020-10-01] MEDS ORDERED: DOCUSATE SODIUM 100MG CAPSULE PO PRN (02:10)
[2020-10-01] MEDS ORDERED: ACETAMINOPHEN 500 MG TAB PO PRN (02:10)
--- NOTE | 2020-10-01 02:17 | DNPDOC ---
[facility] Delivery Note Delivery Note DATE OF DELIVERY: 10/01/2020 PREDELIVERY DIAGNOSIS: 40+0/7 weeks' gestation and labor. POST DELIVERY DIAGNOSIS: Delivered. PROCEDURE: Spontaneous vaginal delivery. PROVIDER: Nahomy Milian CNM ANESTHESIA: Epidural. ESTIMATED BLOOD LOSS: 400 mL. FINDINGS: 8 pound 9 ounce, 3880gm male , Score 7/9, no nuchal cord. DELIVERY SUMMARY: Patient is a 35-year-old 3 now para 3-0-0-3 who was admitted to labor and delivery for induction of labor at term. Pitocin was started and labor progressed. She utilized an epidural for labor coping. AROM clear fluid 2335. Fully dilated 0105. Slow . Viable male delivered SUMMER, restituted to ROT @ 0142. Shoulders delivered with maternal pushing efforts and gentle downward pressure. Spontaneous respirations, transitioned on maternal abdomen. Cord doubly clamped and cut by FOB under my direction once pulsations ceased. Apgars 7/9. Placenta slow to release with long trailing membranes, delivering at 0154. 3v cord noted. Softball sized clot expressed immediately after expulsion. Fundus firmed with massage and IV premixed pitocin bolus. PO methergine series started for 24 hours. EBL 400ml. Cervix, vagina and perineum intact. Sponge, sharp and instrument count correct. Parents are naming their son Otto. Nahomy Milian CNM October 01, 2020 02:17
[2020-10-01] MEDS: METHYLERGONOVINE MALEATE 0.2 MG TAB PO SCH ×4 (02:24→20:24)
[2020-10-01] MEDS: PRENATAL VITAMINS CHEWABLE TABLET PO SCH (08:24)
[2020-10-01] MEDS ORDERED: BOOSTRIX/ADACEL VACCINE (DIPHTH/PERTUSS/ACELL/TETANUS) 0.5ML SYR IM ONE (09:00)
[2020-10-02] MEDS ORDERED: METHYLERGONOVINE MALEATE 0.2 MG TAB PO PRN (02:30)
[2020-10-02 06:00] VITALS: BP 110/76
[2020-10-02] MEDS ORDERED: IBUP80TA PO (07:45)
[2020-10-02] MEDS ORDERED: ACET-683 PO (07:45)
[2020-10-02] MEDS: PRENATAL VITAMINS CHEWABLE TABLET PO SCH (09:17)
== END 2020-10-02 10:54 | disposition home or self-care (01) | DRG 560 ==
LOC: M LDI 12:54 → M OBS 10-01 03:30
PROVIDERS: ADMIT Advanced Practice Midwife; ATTEND Advanced Practice Midwife
PROC: 3E033VJ Introduction of Other Hormone into Peripheral Vein, Percutaneous Approach (ICD-10-PCS; 2020-09-30)
PROC: 10907ZC Drainage of Amniotic Fluid, Therapeutic from Products of Conception, Via Natural or Artificial Opening (ICD-10-PCS; 2020-09-30)
PROC: 10E0XZZ Delivery of Products of Conception, External Approach (ICD-10-PCS; principal; 2020-10-01)
DX: O73.1 Retained portions of placenta and membranes, without hemorrhage (principal); Z37.0 Single live birth; Z3A.39 39 weeks gestation of pregnancy

== ENCOUNTER 2024-03-24 13:43 | Emergency (ER) | payer MEDICAID, OTHER ==
[~2024-03-24] VITALS: Ht 165.1 cm; Wt 87.0 kg
[~2024-03-24 13:43] MED LIST changes: +ACET-683 PO; +ACET325C5 PO; +IBUP80TA PO; +ONDA-282 PO; -ONDA4TAB6 PO
[2024-03-24 13:46] VITALS: TEMP 97.5
[2024-03-24] MEDS ORDERED: IBUP-1022 PO (18:34)
[2024-03-24] MEDS ORDERED: AMOX500C PO (18:34)
[2024-03-24] MEDS: AMOXICILLIN 500 MG CAP PO ONE (18:36)
[2024-03-24] MEDS: IBUPROFEN 600MG TAB PO ONE (18:36)
[2024-03-24 18:40] VITALS: BP 117/63; O2SAT 100
== END 2024-03-24 18:43 | disposition home or self-care (01) ==
LOC: M ED 13:43
DX: K04.7 Periapical abscess without sinus (principal); Z79.2 Long term (current) use of antibiotics; Z79.1 Long term (current) use of non-steroidal anti-inflammatories (NSAID)

== ENCOUNTER 2024-08-12 18:13 | Emergency (ER) | payer OTHER ==
[~2024-08-12] VITALS: Ht 167.6 cm; Wt 85.0 kg
[~2024-08-12 18:13] MED LIST changes: +AMOX500C PO; +IBUP-1022 PO
[2024-08-12] MEDS: ACETAMINOPHEN 325 MG TAB PO ONE (19:41)
[2024-08-12 19:58] LABS: BASO # 0.1 10^3/uL (0.0-0.2); BASO % 0.4 % (0.0-1.0); EOS # 0.1 10^3/uL (0.0-0.5); EOS % 0.7 % (0.0-3.0); HEMATOCRIT 37.1 % (36.0-47.0); HEMOGLOBIN 11.9 g/dl (12.0-15.5); LYMPH # 1.4 10^3/uL (1.5-5.0); LYMPH % 8.6 % (24.0-44.0); MEAN CORPUSCULAR HEMOGLOBIN 24.5 pg (27.0-33.0); MEAN CORPUSCULAR HGB CONC 32.1 g/dl (32.0-36.5); MEAN CORPUSCULAR VOLUME 76.5 fl (80.0-96.0); MONO # 1.3 10^3/uL (0.0-0.8); MONO % 7.5 % (2.0-8.0); NEUTROPHILS # 13.7 10^3/uL (1.5-8.5); NEUTROPHILS % 82.4 % (36.0-66.0); PLATELET COUNT, AUTOMATED 372 10^3/uL (150-450); RED BLOOD COUNT 4.85 10^6/uL (4.00-5.40); WHITE BLOOD COUNT 16.6 10^3/uL (4.0-10.0)
[2024-08-12 20:15] LABS: MONO SCRN NEGATIVE (NEGATIVE)
[2024-08-12] MEDS: MAGIC MOUTHWASH 5ML ORAL SYRINGE SS ONE (20:18)
[2024-08-12 21:00] VITALS: BP 106/66; TEMP 98; O2SAT 96
[2024-08-12] MEDS ORDERED: AZIT500T5 PO (21:49)
[2024-08-12] MEDS ORDERED: MAGICMW SSP (21:49)
[2024-08-12] MEDS ORDERED: IBUP-1022 PO (21:49)
[2024-08-12] MEDS: CHLORASEPTIC SPRAY MT STA (21:50)
[2024-08-12] MEDS: AZITHROMYCIN 250MG TABLET PO ONE (22:12)
== END 2024-08-12 22:14 | disposition home or self-care (01) ==
LOC: M ED 18:13
DX: J02.9 Acute pharyngitis, unspecified (principal); Z79.1 Long term (current) use of non-steroidal anti-inflammatories (NSAID); Z79.2 Long term (current) use of antibiotics